=== PATIENT | male | born 1985 | race Caucasian/White ===

== ENCOUNTER → 2018-06-26 | Outpatient (CLI) | payer MEDICAID ==
[2014-06-04 11:51] VITALS: BMI 34.8
[~2018-06-26] MED LIST: ACET-1966 PO; ALL100 PO; ALL300 PO; ANTIACID CHEW; ANTIDIARRHEA PO; CARB15DR74 OP; CYA1000 PO; EYEL1MED TP; HYDR28CR65 TP; IBUP-1679 PO; LOR5/325 PO; METH454P5 PO; NAPR-712 PO; OS-CAL 500+D PO; WARF-1 PO; [UNRECOGNIZED DRUG - CODE] PO
== END ==
LOC: US 01:20
PROVIDERS: ATTEND Family Medicine
DX: R01.1 Cardiac murmur, unspecified (principal)
CPT/HCPCS: 93306